=== PATIENT | male | born 1950 | race Caucasian/White ===

== ENCOUNTER 2019-05-18 15:01 | Emergency (ER) | payer MEDICARE ==
[~2019-05-18] VITALS: Ht 170.2 cm; Wt 79.0 kg
[2019-05-18 17:21] VITALS: BP 119/75
== END 2019-05-18 17:25 | disposition home or self-care (01) ==
LOC: ER 15:01
DX: R20.2 Paresthesia of skin (principal); G56.03 Carpal tunnel syndrome, bilateral upper limbs; Z98.890 Other specified postprocedural states
CPT/HCPCS: 99281